=== PATIENT | male | born 1985 | race Caucasian/White ===

== ENCOUNTER → 2017-07-16 | Day surgery (SDC) | payer BC ==
[2017-06-24 15:44] VITALS: Ht 170.2 cm; Wt 95.5 kg
[~2017-07-16] VITALS: Ht 170.2 cm; Wt 95.5 kg
[~2017-07-16] MED LIST: ATROPINE SULFATE 0.1 MG/ML 5ML SYR IV PRN; BUPIVACAINE/EPINEPHRINE 0.5% MPF 1:200,000 30 ML VIAL ONE; CEFAZOLIN 2000 MG/60 ML D5W IV SCH; DEXAMETHASONE SOD INJ 4 MG/ML VIAL ONE; EpHEDrine SULFATE INJ 50 MG/ML AMP IV PRN; FENTANYL CITRATE INJ 50 MCG/1 ML 2 ML VIAL ONE; HYDR-5688 PO; HYDROCODONE/ACETAMOPHEN 5/325MG TAB PO PRN; KETOROLAC TROMETHAMINE 30 MG/ML VIAL ONE; LACTATED RINGER'S 1000ML 1,000 ML IV SCH; LIDOCAINE HCL 2% 2 ML VIAL (20MG/ML) ONE; LISI-461 PO; MIDAZOLAM HCL 1 MG/ML 2ML VIAL ONE; MISCCAP80 PO; ONDANSETRON INJ 2 MG/ML 2 ML VIAL IV PRN; ONDANSETRON INJ 2 MG/ML 2 ML VIAL ONE; PROPOFOL IV EMULSION 10 MG/ML 20 ML VIAL IV ONE; SODIUM CHLORIDE 0.9% 1000ML 1,000 ML IV SCH
--- NOTE | 2017-07-16 06:51 | History & Physical Bridge Note ---
H&P Re-Evaluation Bridge Note: I have examined the patient, reviewed the History & Physical and in the interval since the performance of the History & Physical I have noted the following changes of clinical significance: No changes noted
--- NOTE | 2017-07-16 08:24 | [facility] Operative Report ---
Operative Report Operative Date Jul 16, 2017. Pre-Operative Diagnosis Umbilical Hernia Post-Operative Diagnosis Same Procedure(s) Performed Open Umbilical Hernia Repair Surgeon Dr Palacios Pow[employer] Operator Surgeon(s) Marco Lama PA-C Estimated Blood Loss 5ml Findings 1 cm umbilical hernia with fat incarceration Specimens None Anesthesia LMA Complication(s) None Disposition Recovery Room / PACU Description of Procedure After informed consent was obtained the patient was taken to the operating room and placed in supine position. The periumbilical area was shaved and sterilely prepped and draped in usual fashion. We made a curvilinear infraumbilical incision with 15 blade scalpel and carried it down through the soft tissue using electrocautery. I used a Amanda clamp to come around the superior aspect of the umbilicus and then detached the umbilical stalk. This revealed an approximate 1 cm hernia defect. There was some per preperitoneal fat incarcerated within it. I was able to excise the fat and free up the fascial edges. Because of its size I opted to not use mesh. I primarily closed it using 0 Ethibond in simple interrupted fashion. The wound was thoroughly irrigated. There was adequate hemostasis. I reattach the umbilical stalk using 0 Vicryl. I closed the deep layers using 3-0 Vicryl and the skin using 4- 0 Monocryl. Marcaine was injected around the incision for postoperative analgesia and skin glue used as a dressing. The patient was awakened extubated and transferred recovery in stable condition I attest to the content of the Intraoperative Record and any orders documented therein. Any exceptions are noted below.
--- NOTE | 2017-07-16 08:27 | Discharge Instructions-SurgCtr ---
Discharge Instructions Date of Service Jul 16, 2017. Visit Reason for Visit: Umbilical Hernia Discharge Discharge Diagnosis / Problem: Umbilical Hernia Discharge Goals Goal(s): Decrease discomfort, Improve function Activity Recommendations Activity Limitations: as noted below Lifting Limitations: no more than 10 pounds Exercise/Sports Limitations: until after follow-up appointment May Resume Sexual Activity: after follow-up appointment Shower/Bathe: tomorrow Driving or Machine Use: resume 1 day after discharge Anesthesia . Post Anesthesia Instructions: If you have had General Anesthesia or IV Sedation: * Do not drive today. * Resume driving when surgeon permits. * Do not make important decisions or sign legal documents today. * Call surgeon for: 1. Temperature elevations greater than 101 degrees F. 2. Uncontrollable pain. 3. Excessive bleeding. 4. Persistent nausea and vomiting. 5. Medication intolerance (nausea, vomiting or rash). * For nausea and vomiting use only clear liquids such as: tea, soda, bouillon until nausea subsides, then gradually increase diet as tolerated. * If you have any concerns or questions, call your surgeon's office. If physician is unavailable and it is an emergency, call 911 or go to the nearest emergency room. . Instructions / Follow-Up Instructions / Follow-Up Please follow-up with Dr. Palacios in the office in 1-2 weeks. Please call the office to make a follow-up appointment if you do not have one already. Please call the office with any questions or concerns at [phone]. Diet Recommendations Home Diet: no limitations, resume previous diet Procedures Procedures Performed: Open Umbilical Hernia Repair Pending Studies Studies pending at discharge: no Medical Emergencies . Who to Call and When: Medical Emergencies: If at any time you feel your situation is an emergency, please call 911 immediately. . Non-Emergent Contact Non-Emergency issues call your: Primary Care Provider, Surgeon Call Non-Emergent contact if: temperature is above 101.5, your pain is not controlled, wound has increased drainage, wound has increased redness . . "Provider Documentation" section prepared by Consuelo Lopez. . [place] Drug Monitoring Program Search Results: patient reviewed within database, no issues identified
[2017-07-16] MEDS: FENTANYL CITRATE INJ 50 MCG/1 ML 2 ML VIAL IV PRN ×2 (08:33→08:39)
--- NOTE | 2017-07-16 08:38 | Anesthesia Progress Nt - [facility] ---
Anesthesia Post Op Note Date & Time Jul 16, 2017 at 08:38 Vital Signs Pain Intensity: 5.0 Vital Signs Past 12 Hours Date Time Temp Pulse Resp B/P (MAP) Pulse Ox O2 Delivery O2 Flow Rate FiO2 07/16/17 06:58 36.5 80 18 149/96 (113) 98 Room Air Notes Mental Status: alert / awake / arousable, participated in evaluation Pt Amnestic to Procedure: Yes Nausea / Vomiting: adequately controlled Pain: adequately controlled Airway Patency, RR, SpO2: stable & adequate BP & HR: stable & adequate Hydration State: stable & adequate Anesthetic Complications: no major complications apparent
[2017-07-16 09:56] VITALS: BP 141/95; PULSE 79; TEMP 36.5; O2SAT 98
== END | disposition home or self-care (01) ==
LOC: X.SURG 06:36
PROVIDERS: ATTEND Surgery
DX: K42.0 Umbilical hernia with obstruction, without gangrene (principal); I10 Essential (primary) hypertension; Z79.899 Other long term (current) drug therapy

== ENCOUNTER 2019-07-03 09:29 | Inpatient (IN) ==
[~2019-07-03 09:29] MED LIST changes: -ATROPINE SULFATE 0.1 MG/ML 5ML SYR IV PRN; -BUPIVACAINE/EPINEPHRINE 0.5% MPF 1:200,000 30 ML VIAL ONE; -CEFAZOLIN 2000 MG/60 ML D5W IV SCH; +CEFAZOLIN 2000MG 2,000 MG/15 ML SYR IV SCH; -DEXAMETHASONE SOD INJ 4 MG/ML VIAL ONE; -EpHEDrine SULFATE INJ 50 MG/ML AMP IV PRN; -FENTANYL CITRATE INJ 50 MCG/1 ML 2 ML VIAL ONE; -HYDR-5688 PO; -HYDROCODONE/ACETAMOPHEN 5/325MG TAB PO PRN; -KETOROLAC TROMETHAMINE 30 MG/ML VIAL ONE; -LACTATED RINGER'S 1000ML 1,000 ML IV SCH; -LIDOCAINE HCL 2% 2 ML VIAL (20MG/ML) ONE; -LISI-461 PO; -MIDAZOLAM HCL 1 MG/ML 2ML VIAL ONE; -MISCCAP80 PO; -ONDANSETRON INJ 2 MG/ML 2 ML VIAL IV PRN; -ONDANSETRON INJ 2 MG/ML 2 ML VIAL ONE; -PROPOFOL IV EMULSION 10 MG/ML 20 ML VIAL IV ONE; -SODIUM CHLORIDE 0.9% 1000ML 1,000 ML IV SCH
[2019-07-03 10:20] LABS: Basophils # (auto) 0.01 K/uL (0-0.2); Basophils % (auto) 0.1 %; Hematocrit (blood only) 46.2 % (42-52); Hemoglobin 16.3 g/dL (14.0-18.0); Immature Granulocytes # (auto) 0.02 K/uL (0.00-0.02); Immature Granulocytes % (auto) 0.2 %; Lymphocytes # (auto) 1.08 K/uL (1.2-3.4); Lymphocytes % (auto) 10.7 %; Mean Corpuscular Hemoglobin 32.6 pg (25-34); Mean Corpuscular Hgb Conc 35.3 g/dL (32-36); Mean Corpuscular Volume 92.4 fL (80-100); Mean Platelet Volume 10.4 fL (7.4-10.4); Monocytes # (auto) 0.55 K/uL (0.11-0.59); Monocytes % (auto) 5.5 %; Neutrophils # (auto) 8.42 K/uL (1.4-6.5); Neutrophils % (auto) 83.5 %; Platelet Count 244 K/uL (130-400); RDW Coefficient of Variation 12.6 % (11.5-14.5); RDW Standard Deviation 42.1 fL (36.4-46.3); White Blood Count 10.08 K/uL (4.8-10.8)
[2019-07-03 10:26] LABS: Albumin Level 4.2 gm/dl (3.4-5.0); Creatinine Clr Calc Pharmacy 111.4 ml/min; Est GFR (African American) 111.4; Est GFR (Non-African American) 96.1; Potassium 3.6 mmol/L (3.5-5.1)
[2019-07-03 10:29] LABS: Bilirubin,Total 0.5 mg/dl (0.2-1); Globulin 4.4 gm/dl (2.5-4.0); Total Protein 8.6 gm/dl (6.4-8.2)
[2019-07-03] MEDS ORDERED: ONDANSETRON INJ 2 MG/ML 2 ML VIAL IV PRN ×3 (11:22→18:54)
[2019-07-03] MEDS ORDERED: HYDROmorphone INJ 1 MG/ML SYRINGE IV PRN (11:30)
[2019-07-03] MEDS ORDERED: LACTATED RINGER'S 1,000 ML IV SCH ×2 (11:30→20:00)
--- NOTE | 2019-07-03 11:42 | History & Physical Report ---
Date of Service July 03, 2019 Assessment & Plan (1) Radiculopathy due to disorder of intervertebral disc of lumbar spine: due to the patient's neurological decline and urinary retention over the past 48hours, Case has been reviewed with Dr. Oconnell. We have made him n.p.o. We will take him urgently to the OR for revision decompression/instrument fusion L4-5. Risks, benefits, pros and alternatives were I&D with patient and his . They are comfortable with proceeding with above-mentioned surgical planning. History of Present Illness 33-year-old gentleman who presents to the ER with complaints of bilateral lower extremity numbness and pain. Symptoms started about 3 weeks ago but progressively worsened about 48 hours ago. He was working as a medication tech in [place] and a coworker took him to the ER at [facility] 48 hours ago. They waited in the ER for several hours without being seen therefore they left and came to [facility] emergency room for evaluation. MRI was ordered and Dr. Oconnell was consulted. He was supposed to follow-up in our office this morning but due to worsening numbness affecting bilateral lower extremities as well as pain in his ability to ambulate, he presented to the ER again. He has noted urinary retention over the past 48 hours. He has been taking oxycodone, prednisone and Valium for pain control. He does have a prior history of a laminectomy by Dr. Rothman in [facility] roughly 10 years ago.Symptoms involve bilateral posterior thighs, left calf and both feet. Primary Care Provider: Zee Mccann PA-C Allergies Allergy/AdvReac Type Severity Reaction Status Date / Time No Known Allergies Allergy Unverified 07/03/19 10:55 Home Medications Home Medications Medication Instructions Recorded Confirmed Type acetaminophen [Tylenol Extra 500 mg PO Q6H PRN 07/01/19 07/03/19 History Strength] diazepam [Valium] 2 mg PO QID PRN #10 tab 07/01/19 07/03/19 Rx diclofenac sodium 75 mg PO BID 07/01/19 07/03/19 History lidocaine [Lidoderm] 1 patch TOP DAILY #10 ea 07/01/19 07/03/19 Rx lisinopril-hydrochlorothiazide 1 tab PO QAM 07/01/19 07/03/19 History oxycodone 5 mg PO Q4H #10 tab 07/01/19 07/03/19 Rx sertraline 100 mg PO QAM 07/01/19 07/03/19 History prednisone 60 mg PO QAM 07/03/19 07/03/19 History Past Med/Surg History Medical History Bulging disc Surgical History No pertinent past surgical history Family History Other No pertinent family history Social History Preferred Language: Albanian Communication Ability: Effective Advertising Dispatch Clerk Required: No Beliefs That Will Affect Care: None Current Living Situation: Spouse and Family Other Information That Helps Us Care for You: No Feels Safe at Home: Yes Safety Concerns: Feels Safe At This Time Smoking Status: Never smoker Do You Dip or Chew Tobacco: No ; Second Hand Exposure: No ; Tobacco Cessation Education Requested by Patient: No Hx Alcohol Use: Yes Hx Substance Use: No Review of Systems Review of Systems: All systems reviewed & are unremarkable except as noted in HPI & below Physical Exam Physical Exam: He is seen in the emergency room [facility]. He is seen in conjunction with his . He is lying prone. He is in obvious distress. He is able to sit on the edge of the bed for me for further examination. He has a well-healed midline lumbar incision. He has breakaway weakness over bilateral quadriceps and hamstrings. He has positive straight leg raise and contralateral straight leg raise. Sensation is intact bilateral lower extremities. Constitutional: WD/WN, vitals as above Eyes: normal visual osorio by confrontation ENMT: external ear and nose normal, oropharynx normal Neck: normal visual inspection Respiratory: normal respiratory effort Cardiovascular: Rate/Rhythm: regular rate Gastrointestinal (Abdomen): Inspection/Auscultation: abdomen normal to inspection Musculoskeletal: see above Skin: no rashes, warm and dry Neurologic: moves all extremities and + focal motor deficit Psychiatric: A+Ox3, euthymic affect Speech: normal rate/rhythm/volume of speech Results & Data Vital Signs (Past 12 Hours) Vital Signs Temp Pulse Resp BP Pulse Ox 07/03/19 10:14 95 H 18 98 07/03/19 09:33 36.7 C 95 H 18 159/100 H 98 Diagnostic Findings MR lumbar spine wo/w con CLINICAL HISTORY: 33 years-old Male presenting with Sciatica, possible urinary retention, history of bulging disc with surgery, low back pain for 2 weeks, now worsening, difficulty voiding, numbness and tingling in both legs, numbness in the feet. TECHNIQUE: Multisequence, multiplanar MR imaging of the lumbar spine was performed before and after the administration of intravenous contrast. IV contrast: 9.5 mL of Gadavist. COMPARISON: None. FINDINGS: Localizer images: Mild S-shaped scoliotic curvature of the thoracolumbar spine. Normal lumbar lordosis. Vertebral bodies maintain normal height, alignment, and bone marrow signal intensity with the exception of trace endplate edema at L4-5. Intervertebral disc desiccation and mild height loss at L3-4 and L4-5. Additional multilevel degenerative changes further detail below: L1-2: No significant neural foraminal or spinal canal narrowing. L2-3: No significant neural foraminal or spinal canal narrowing. L3-4: Mild facet arthropathy. No significant neural foraminal or spinal canal narrowing. L4-5: Disc extrusion with caudal migration. The extruded disc fragment extends 16 mm below the superior endplate of L5 and measures 10 x 9 mm in maximal axial dimension. This severely effaces the thecal sac. No residual CSF signal. Mild bilateral neural foraminal narrowing. L5-S1: No significant neural foraminal or spinal canal narrowing. Spinal cord terminates in good position at T12. Cauda equina normal in morphology apart from the severe crowding at L4-5 as mentioned. No evidence of a buckled morphology. Postcontrast imaging does not demonstrate abnormal enhancement of the spinal nerve roots. Nonenhancement of the extruded disc as expected. No other epidural collection. Flow-voids within the vasculature preserved. Remainder of the visualized soft tissues within normal limits and with normal enhancement. Visualized portion of the sacrum also normal. IMPRESSION: 1. Extruded disc fragment with caudal migration at L4-5 resulting in severe effacement of the thecal sac. Correlate clinically for cauda equina impingement, although this is convincingly present on this exam. 2. Mild neural foraminal narrowing at L4-5. The report will be called/faxed according to standard departmental protocol. Electronically signed by: Eusebio Avery M.D. 07/01/2019 8:26 PM Dictated: 07/01/192019 Supervising Physician Co-Signing Physician Notes Dr. Yony Oconnell
--- NOTE | 2019-07-03 12:40 | History & Physical Bridge Note ---
Date of Service July 03, 2019 History & Physical Bridge Note I have examined the patient, reviewed the History & Physical and in the interval since the performance of the History & Physical I have noted the following changes of clinical significance: Patient presents with a marked decline in neurologic status with bilateral leg weakness and numbness and urinary retention. In light of his MRI findings and clinical presentation patient requires emergent decompression and fusion L4-5.
[2019-07-03] MEDS ORDERED: fentaNYL citrate 100 MCG/2 ML VIAL ONE ×4 (12:42→14:25)
[2019-07-03] MEDS ORDERED: MIDAZOLAM HCL 1 MG/ML 2ML VIAL ONE (12:42)
[2019-07-03] MEDS ORDERED: BACITRACIN INJ 50,000 UNIT VIAL ONE (12:43)
[2019-07-03] MEDS ORDERED: BUPIVACAINE/EPINEPHRINE 0.5% MPF 1:200,000 30 ML VIAL ONE (12:43)
[2019-07-03] MEDS ORDERED: HYDROmorphone INJ 2 MG/ML SYR/VIAL ONE (12:44)
--- NOTE | 2019-07-03 13:04 | Anesthesiology Consultation ---
Date of Service July 03, 2019 Assessment & Plan (1) Encounter for pre-operative examination: Chart Review Chart Review: Acceptable Risk for Surgery and Patient NOT seen in Pre Admission Testing Consults Requested none ASA [id number] Proposed Anesthesia Anesthesia Type: General Risk / Benefits Reviewed With: PT / POA / Parent / Guardian, Accepts Plan and Informed Consent Obtained History Surgery Operation Date: 07/03/19 11:15 Proposed Procedures p L4-L5 Decompression and Fusion - Yony Oconnell DO Height/Weight Height: 5 ft 6 in Weight: 95.5 kg Allergies Allergy/AdvReac Type Severity Reaction Status Date / Time No Known Allergies Allergy Unverified 07/03/19 10:55 Medications Home Medications Medication Instructions Recorded Confirmed Last Taken acetaminophen [Tylenol Extra 500 mg PO Q6H PRN 07/01/19 07/03/19 07/02/19 18:00 Strength] 1000mg diazepam [Valium] 2 mg PO QID PRN #10 tab 07/01/19 07/03/19 07/03/19 07:30 diclofenac sodium 75 mg PO BID 07/01/19 07/03/19 07/02/19 21:00 lidocaine [Lidoderm] 1 patch TOP DAILY #10 ea 07/01/19 07/03/19 07/02/19 lisinopril-hydrochlorothiazide 1 tab PO QAM 07/01/19 07/03/19 07/03/19 oxycodone 5 mg PO Q4H #10 tab 07/01/19 07/03/19 Unknown sertraline 100 mg PO QAM 07/01/19 07/03/19 07/03/19 prednisone 60 mg PO QAM 07/03/19 07/03/19 07/03/19 07:30 NPO Date Last Intake of Fluids: 07/03/19 Time Last Intake of Fluids: 07:30 Date Last Intake of Solids: 07/03/19 Time Last Intake of Solids: 03:00 Past Medical History Medical History Anxiety Hypertension Bulging disc Exercise / Class Metabolic Activity II 4-5 Yardwork/Stairs/Walk up hill Negative for chest pain or shortness of breath. Past Family History Family History Other No pertinent family history Past Surgical History Surgical History H/O discectomy History of hernia surgery Past Anesthesia History No Hx of Anesthesia Complications History of PONV No Hx of PONV and No Hx of Motion Sickness Social History Smoking Status: Never smoker Do You Dip or Chew Tobacco: No Hx Alcohol Use: Yes alcohol intake frequency: other Alcohol Intake Frequency Comment: 1 a month Hx Substance Use: No substance use type: does not use Review of Systems Patient denies active symptoms of GERD. Physical Exam Vital Signs Last Vital Signs Temp 36.8 C 07/03/19 12:14 Pulse 88 07/03/19 12:14 Resp 16 07/03/19 12:14 BP 138/99 07/03/19 12:14 Pulse Ox 92 07/03/19 12:14 Constitutional + obese ENMT Mouth: no TMJ abnormality and oral opening not small Thyromental Distance: > or= 3.5 Finger Breadths Mallampati Class: II Neck normal visual inspection; neck extension not limited Respiratory normal respiratory effort Auscultation: lungs clear to auscultation bilaterally Cardiovascular Rate/Rhythm: regular rate and regular rhythm Heart Sounds: no murmur Neurologic moves all extremities Motor/Sensory: + sensory deficit Psychiatric Orientation: alert and oriented x 3 Testing Laboratory Results 07/03/19 09:55 07/03/19 09:55
[2019-07-03] MEDS ORDERED: PROMETHAZINE HCL 12.5 MG in SODIUM CHLORIDE 0.9% 50 ML IV PRN ×2 (13:13→18:54)
[2019-07-03] MEDS ORDERED: ATROPINE SULFATE 0.1 MG/ML 10ML SYR IV PRN (13:13)
[2019-07-03] MEDS ORDERED: ePHEDrine sulfate 50 MG/ML AMP IV PRN (13:13)
[2019-07-03] MEDS ORDERED: PROPOFOL IV EMULSION 10 MG/ML 20 ML VIAL IV ONE (13:41)
[2019-07-03] MEDS ORDERED: ROCURONIUM BROMIDE 10 MG/ML 5 ML VIAL ONE (13:41)
[2019-07-03] MEDS ORDERED: NEOSTIGMINE METHYLSULFATE 1 MG/ML 10ML VIAL ONE (13:41)
[2019-07-03] MEDS ORDERED: GLYCOPYRROLATE 0.2 MG/ML VIAL ONE (13:41)
[2019-07-03] MEDS ORDERED: DEXAMETHASONE SOD INJ 4 MG/ML VIAL ONE (13:41)
[2019-07-03] MEDS ORDERED: PHENYLEPHRINE 100MCG/ML 5ML SYR ONE ×2 (13:41→14:22)
[2019-07-03] MEDS ORDERED: LIDOCAINE HCL 2% 2 ML VIAL/AMP(20MG/ML) INFIL ONE (13:41)
[2019-07-03] MEDS ORDERED: ONDANSETRON INJ 2 MG/ML 2 ML VIAL ONE (13:41)
[2019-07-03] MEDS ORDERED: LARYING-O-JET KIT (LTA) ONE (13:42)
[2019-07-03] MEDS ORDERED: ePHEDrine sulfate 50 MG/ML SYR ONE (14:22)
--- NOTE | 2019-07-03 15:01 | Fluoroscopy Report ---
LUMBAR SPINE, INTRAOPERATIVE FLUOROSCOPY HISTORY: L4-L5 decompression and fusion. FLUOROSCOPY TIME: 16 seconds. FINDINGS: Intraoperative fluoroscopy was provided for the lumbar spine. 2 fluoroscopic spot images we re obtained. Posterior decompression and fusion at L4-L5 with pedicle screws and rods. The hardware a ppears intact. IMPRESSION: Fluoroscopy provided for a L4-5 posterior decompression and fusion. Electronically signed by: Chapincito Harrison M.D. 07/03/2019 3:00 PM
--- NOTE | 2019-07-03 15:02 | Operative Report ---
Post Operative Report Pre & Post Diagnosis Operation Date: 07/03/19 11:15 Pre-Op Diagnosis: Radiculopathy due to disorder of intervertebral disc of lumbar spine Cauda equina syndrome Post-Op Diagnosis: Same Procedure Operation Date: 07/03/19 11:15 Actual Procedures #1 revision decompression bilateral medial facetectomies foraminotomies L4-5. #2 posterior spinal fusion L4-5 per #3 placed posterior instrumentation L4-5 per #4 interbody fusion L4-5. #5 placement of titanium 11 x 26 mm cage L4-5. #6 placement of local autograft in the posterior lateral gutters per #7 placement infuse collagen sponge bone mass graft in the posterior lateral gutters and ostial amp in the interbody space. Surgeon Yony Oconnell, Vacuum Kettle Cook Iva Cifuentes Estimated Blood Loss 100 Findings See Below Patient is 5 foot 6 inches tall weighing in over 95 pounds with a BMI of 34. The patient's body habitus did ask created increased technical difficulty at at least 25% increase in operative time. Specimens None Indications This is a 33-year-old male that presents with a marked decline in status over the past 2 days. He has marked increase in lower extremity numbness and pain with urinary retention for the presentation of cauda equina syndrome.. Based on his clinical presentation and MRI findings he was taken to surgery for emergent decompression and fusion. Description of Procedure Patient was met with identified and informed consent obtained. He was then taken to the operative suite underwent intubation placed in a prone position on the Imtiaz table on top of the Edwin frame. All bony prominences well-padded eyes inspected to ensure no external pressure placed upon the peer at this point the lumbar spine was prepped and draped in the normal sterile fashion. Sharp dissection with the assistance of Bovie cautery was performed down to and exposing the remaining lamina at L4 and the transverse processes of L4 and L5 bilaterally. I then performed a revision complete laminectomy of L4 including bilateral medial facetectomies foraminotomies. He was then able to mobilize the traversing L5 nerve root medially and removed several fragments. Then explored the axillary region of L5-S1 removing a massive free fragment. This created significant decompression of the nerve roots. And then by way of a transforaminal approach on the left complete discectomy was performed in plate graded to subcortical bleeding bone and a 11 x 26 mm titanium cage filled with ostium bone graft tapped in position. The rods were then compressed locked in final position bilaterally. The transverse processes of L4 and L5 bur to subcortical bleeding bone. Infuse collagen sponge master graft and local autograft placed in the posterior lateral gutters. 15 round LAMINE drain inserted. Incision was then closed with 1 Vicryl in the fascia 2-0 Vicryl subtenons in 4-0 Monocryl for final skin closure. Steri-Strip sterile dressings placed. She will continue to PACU stable condition. Please note Iva Cifuentes present throughout the entire procedure involved the patient positioning complex portions of the surgery and final skin closure. Lastly spinal cord monitoring was utilized throughout the procedure and no changes noted. I attest to the content of the Intraoperative Record and any orders documented therein. Any exceptions are noted below.
[2019-07-03] MEDS ORDERED: FLOSEAL HEMOSTATIC MATRIX 10ML TOP ONE (15:10)
[2019-07-03] MEDS: fentaNYL citrate 100 MCG/2 ML VIAL IV PRN ×2 (15:37→15:44)
[2019-07-03] MEDS: HYDROmorphone INJ 2 MG/ML SYR/VIAL IV PRN ×3 (16:25→17:03)
--- NOTE | 2019-07-03 16:45 | Emergency Department Note ---
Entered by Sandie Ag acting as a scribe for History of Present Illness General Chief complaint: Back Injury/Pain Stated complaint: LOSS OF BALANCE, NO FEELING LEGS/FEET,LOW BACKPAIN Source: patient History of Present Illness Onset (ago): week(s) 3 Location: back (lower) Pain Consistency: + constant Quality: + other (lower back pain ) Associated symptoms: + other (+numbness to posterior lower extremities; +troubles defecating; +urinating "dribbles"; -diarrhea ); no chest pain, no nausea/vomiting and no shortness of breath The patient is a 33 year old male who presents to the Emergency Room with complaints of constant lower back pain for the past 3 weeks. The patient notes he had disc surgery approximately 10 years ago at [facility]. The patient also notes numbness that began 2 days ago to the back of his thighs, buttocks, bottom of feet, and right calf. The patient denies experiencing any numbness to the front of his legs. The patient also states he has not been defecating recently. The patient notes he was urinating "dribbles" 2 days ago, but the patient notes this has improved. The patient reports he was in the ED for the same symptoms 2 days ago. The patient reports he was given oxycodone and and prednisone for symptoms. The patient reports the numbness to his legs has worsened since the previous ED visit. The patient states he took oxycodone for the first time in his life two nights ago, and the patient reports he woke up in the middle of night to walk to the bathroom. The patient states that when he walking, he felt nauseated and felt as if his ankles were gonna snap. The patient states he called 911, but the patient notes he was able to calm down and symptoms resolved before police arrived. The patient also states his right leg gave out yesterday. The patient denies chest pain, shortness of breath, diarrhea, and vomiting. 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 Home Medications Home Medications Medication Instructions Recorded Confirmed Type acetaminophen [Tylenol Extra 500 mg PO Q6H PRN 07/01/19 07/03/19 History Strength] diazepam [Valium] 2 mg PO QID PRN #10 tab 07/01/19 07/03/19 Rx diclofenac sodium 75 mg PO BID 07/01/19 07/03/19 History lidocaine [Lidoderm] 1 patch TOP DAILY #10 ea 07/01/19 07/03/19 Rx lisinopril-hydrochlorothiazide 1 tab PO QAM 07/01/19 07/03/19 History oxycodone 5 mg PO Q4H #10 tab 07/01/19 07/03/19 Rx sertraline 100 mg PO QAM 07/01/19 07/03/19 History prednisone 60 mg PO QAM 07/03/19 07/03/19 History Allergies Allergy/AdvReac Type Severity Reaction Status Date / Time No Known Allergies Allergy Unverified 07/03/19 10:55 Past Med/Surg History Medical History Anxiety Hypertension Bulging disc Surgical History H/O discectomy History of hernia surgery Family History Other No pertinent family history Social History Preferred Language: Italian Communication Ability: Effective Cloth Napping Supervisor Required: No Beliefs That Will Affect Care: None Current Living Situation: Spouse and Family Other Information That Helps Us Care for You: No Feels Safe at Home: Yes Safety Concerns: Feels Safe At This Time Smoking Status: Never smoker Do You Dip or Chew Tobacco: No ; Second Hand Expos ure: No ; Tobacco Cessation Education Requested by Patient: No Hx Alcohol Use: Yes Hx Substance Use: No Review of Systems See HPI for pertinent positives & negatives. and A total of 10 systems reviewed and were otherwise negative Physical Exam Vital Signs Vital Signs - 24 hr 07/03/19 09:33 07/03/19 10:14 07/03/19 11:58 Temperature 36.7 C Temperature Source Oral Sepsis Recent Fever Within 48 Hours No Sepsis New/Unexplained Change in Mental Status No Sepsis Action Taken by Nursing No Action Required Pulse Rate 95 H 95 H 71 Pulse Rate [Apical] Pulse Rate [Right Finger] Pulse Rhythm [Apical] Pulse Rhythm [Right Finger] Pulse Strength [Right Finger] Respiratory Rate 18 18 19 Respiratory Effort / Characteristics Non-Labored Spontaneous Respiratory Depth Normal Respiratory Pattern Blood Pressure 159/100 H 133/74 Blood Pressure [Left Arm] Blood Pressure Mean 119 Blood Pressure Mean [Left Arm] Blood Pressure Position Sitting Blood Pressure Position [Left Arm] Pulse Oximetry 98 98 97 Oxygen Delivery Method Room Air Room Air Room Air Oxygen Flow Rate 07/03/19 12:14 07/03/19 15:19 07/03/19 15:25 Temperature 36.8 C 37.1 C Temperature Source Oral Temporal Artery Scan Sepsis Recent Fever Within 48 Hours Sepsis New/Unexplained Change in Mental Status Sepsis Action Taken by Nursing Pulse Rate Pulse Rate [Apical] 135 H 99 H Pulse Rate [Right Finger] 88 Pulse Rhythm [Apical] Regular Regular Pulse Rhythm [Right Finger] Regular Pulse Strength [Right Finger] Normal Respiratory Rate 16 15 21 Respiratory Effort / Characteristics Non-Labored Spontaneous Non-Labored Spontaneous Non-Labored Spontaneous Respiratory Depth Normal Normal Normal Respiratory Pattern Regular Regular Regular Blood Pressure Blood Pressure [Left Arm] 138/99 123/98 135/87 Blood Pressure Mean Blood Pressure Mean [Left Arm] 112 106 103 Blood Pressure Position Blood Pressure Position [Left Arm] Sitting Semi-fowlers Semi-fowlers Pulse Oximetry 92 99 98 Oxygen Delivery Method Room Air Oxymask Oxymask Oxygen Flow Rate 10 10 07/03/19 15:35 07/03/19 15:45 07/03/19 15:55 Temperature Temperature Source Sepsis Recent Fever Within 48 Hours Sepsis New/Unexplained Change in Mental Status Sepsis Action Taken by Nursing Pulse Rate Pulse Rate [Apical] 118 H 132 H 121 H Pulse Rate [Right Finger] Pulse Rhythm [Apical] Regular Regular Regular Pulse Rhythm [Right Finger] Pulse Strength [Right Finger] Respiratory Rate 15 15 19 Respiratory Effort / Characteristics Non-Labored Spontaneous Non-Labored Spontaneous Non-Labored Spontaneous Respiratory Depth Normal Normal Normal Respiratory Pattern Regular Regular Regular Blood Pressure Blood Pressure [Left Arm] 134/87 123/69 114/64 Blood Pressure Mean Blood Pressure Mean [Left Arm] 102 87 80 Blood Pressure Position Blood Pressure Position [Left Arm] Semi-fowlers Semi-fowlers Semi-fowlers Pulse Oximetry 98 95 92 Oxygen Delivery Method Oxymask Room Air Room Air Oxygen Flow Rate 10 07/03/19 16:05 07/03/19 16:15 07/03/19 16:25 Temperature Temperature Source Sepsis Recent Fever Within 48 Hours Sepsis New/Unexplained Change in Mental Status Sepsis Action Taken by Nursing Pulse Rate Pulse Rate [Apical] 119 H 126 H 129 H Pulse Rate [Right Finger] Pulse Rhythm [Apical] Regular Regular Regular Pulse Rhythm [Right Finger] Pulse Strength [Right Finger] Respiratory Rate 22 21 18 Respiratory Effort / Characteristics Non-Labored Spontaneous Non-Labored Spontaneous Non-Labored Spontaneous Respiratory Depth Normal Normal Normal Respiratory Pattern Regular Regular Regular Blood Pressure Blood Pressure [Left Arm] 145/95 H 147/92 H 112/69 Blood Pressure Mean Blood Pressure Mean [Left Arm] 111 110 83 Blood Pressure Position Blood Pressure Position [Left Arm] Semi-fowlers Semi-fowlers Semi-fowlers Pulse Oximetry 97 98 98 Oxygen Delivery Method Nasal Cannula Nasal Cannula Nasal Cannula Oxygen Flow Rate 2 2 2 07/03/19 16:35 Temperature Temperature Source Sepsis Recent Fever Within 48 Hours Sepsis New/Unexplained Change in Mental Status Sepsis Action Taken by Nursing Pulse Rate Pulse Rate [Apical] 122 H Pulse Rate [Right Finger] Pulse Rhythm [Apical] Regular Pulse Rhythm [Right Finger] Pulse Strength [Right Finger] Respiratory Rate 12 Respiratory Effort / Characteristics Non-Labored Spontaneous Respiratory Depth Normal Respiratory Pattern Regular Blood Pressure Blood Pressure [Left Arm] 110/64 Blood Pressure Mean Blood Pressure Mean [Left Arm] 79 Blood Pressure Position Blood Pressure Position [Left Arm] Semi-fowlers Pulse Oximetry 98 Oxygen Delivery Method Nasal Cannula Oxygen Flow Rate 2 GENERAL: laying in bed on right side, minimal distress, non-toxic EYE EXAM: normal conjunctiva, OROPHARYNX: no exudate, no erythema, lips, buccal mucosa, and tongue normal and mucous membranes are moist NECK: supple, no nuchal rigidity, no adenopathy, non-tender LUNGS: Clear to auscultation. Normal chest wall mechanics HEART: no murmurs, S1 normal and S2 normal ABDOMEN: abdomen soft, non-tender, normo-active bowel sounds, no masses, no rebound or guarding. BACK: Back is symmetrical on inspection and there is no deformity, no midline tenderness, no CVA tenderness. SKIN: no rashes and no bruising UPPER EXTREMITIES: upper extremities are grossly normal. LOWER EXTREMITIES: Flexion and extension of hip, knee, and ankle and EHL 4/5 on left and 5/5 on right but still weak on right. Patellar and achilles reflexes 3/4 bilaterally. Diminished sensation posteriorly on legs. NEURO EXAM: Normal sensorium, cranial nerves II-XII grossly intact, normal speech, no gross weakness of arms. Course ED COURSE: Vital signs were reviewed and showed hypertensive. The patients medical record was reviewed The above diagnostic studies were performed and reviewed. ED treatments and interventions as stated above. 1013: The patient was evaluated in room C7. A complete history and physical examination was performed. 1047: I reviewed the patient's case with Dr. Fonseca. Dr. Oconnell will evaluate the patient for further management in the OR. Based on the patients age, coexisting illnesses, exam and lab findings the decision to treat as an inpatient was made. The patient remained stable while under my care. The patient will be evaluated for further management. Consultations Consultation #1: I reviewed the patient's case with Dr. Fonseca. Dr. Oconnell will evaluate the patient for further management in the OR. Time: 10:47 Administered Medications Fentanyl Citrate (Fentanyl Citrate) 50 mcg IV Q5M PRN PRN Reason: PACU Use Only-Pain Stop: 07/03/19 18:14 Last Admin: 07/03/19 15:44 Dose: 50 mcg Documented by: [id number] Admin: 07/03/19 15:37 Dose: 50 mcg Documented by: [id number] Hydromorphone HCl (Dilaudid) 0.5 mg IV Q5M PRN PRN Reason: PACU Use Only-Pain Stop: 07/03/19 18:14 Last Admin: 07/03/19 16:38 Dose: 0.5 mg Documented by: [id number] Admin: 07/03/19 16:25 Dose: 0.5 mg Documented by: [id number] Cefazolin Sodium (Ancef 2000mg) 2,000 mg in 15 mls @ 3.75 mls/min IV PREOP MELODIE; Protocol Stop: 07/04/19 05:59 Last Admin: 07/03/19 13:14 Dose: 3.75 mls/min Documented by: [id number] Discontinued Medications Bacitracin (Bacitracin) Confirm Administered Dose 50,000 units .ROUTE .STK-MED ONE Stop: 07/03/19 12:44 Last Admin: 07/03/19 14:44 Dose: 50,000 units Documented by: [id number] Bupivacaine HCl/Epinephrine Bitart (Sensorcaine/Epinephrine 0.5% Mpf 1:200,000) Confirm Administered Dose 30 ml .ROUTE .STK-MED ONE Stop: 07/03/19 12:44 Last Admin: 07/03/19 13:51 Dose: 25 ml Documented by: [id number] Miscellaneous (Floseal Hemostatic Matrix 10ml) 20 ml TOP ONCE ONE Stop: 07/03/19 15:11 Last Admin: 07/03/19 15:11 Dose: 7 ml Documented by: [id number] Medical Decision Making Differential Diagnosis Differential diagnoses includes but is not limited to lumbar radiculopathy, muscle strain, fracture, cauda equina, mass, and disc herniation. Medical Records Attestation: I reviewed the patient's medical records. Home Medications Current Medication List: was personally reviewed by sc Laboratory Data Attestation: I reviewed the patient's lab results. Result diagrams: 07/03/19 09:55 07/03/19 09:55 Lab Results 07/03/19 07/03/19 07/03/19 Range/Units 09:55 09:55 11:38 WBC 10.08 (4.8-10.8) K/uL RBC 5.00 (4.7-6.1) M/uL Hgb 16.3 (14.0-18.0) g/dL Hct 46.2 (42-52) % MCV 92.4 (80-100) fL MCH 32.6 (25-34) pg MCHC 35.3 (32-36) g/dL RDW Std Deviation 42.1 (36.4-46.3) fL RDW Coeff of Shanda 12.6 (11.5-14.5) % Plt Count 244 (130-400) K/uL MPV 10.4 (7.4-10.4) fL Immature Gran % (Auto) 0.2 % Neut % (Auto) 83.5 % Lymph % (Auto) 10.7 % [place] % (Auto) 5.5 % Eos % (Auto) 0.0 % Baso % (Auto) 0.1 % Immature Gran # (Auto) 0.02 (0.00-0.02) K/uL Neut # (Auto) 8.42 H (1.4-6.5) K/uL Lymph # (Auto) 1.08 L (1.2-3.4) K/uL [place] # (Auto) 0.55 (0.11-0.59) K/uL Eos # (Auto) 0.00 (0-0.5) K/uL Baso # (Auto) 0.01 (0-0.2) K/uL Sodium 139 (136-145) mmol/L Potassium 3.6 (3.5-5.1) mmol/L Chloride 103 (98-107) mmol/L Carbon Dioxide 27 (21-32) mmol/L Anion Gap 9.0 (3-11) BUN 14 (7-18) mg/dl Creatinine 1.02 (0.6-1.4) mg/dl Est Cr Clr Drug Dosing 111.4 ml/min Est GFR ( Amer) 111.4 Est GFR (Non-Af Amer) 96.1 BUN/Creatinine Ratio 14.0 (10-20) Glucose 101 H (70-99) mg/dl Calcium 10.0 (8.5-10.1) mg/dl Total Bilirubin 0.5 (0.2-1) mg/dl AST 26 (15-37) U/L ALT 34 (12-78) U/L Alkaline Phosphatase 105 (45-117) U/L Total Protein 8.6 H (6.4-8.2) gm/dl Albumin 4.2 (3.4-5.0) gm/dl Globulin 4.4 H (2.5-4.0) gm/dl Albumin/Globulin Ratio 1.0 (0.9-2) Lipase 110 (73-393) U/L Blood Type O Positive Antibody Screen NEGATIVE Blood Pressure Blood Pressure Findings: Elevated blood pressure Blood Pressure Disposition: further management by hospitalist JONG Narrative Patient is a 33-year-old male who presents the ER for back pain and leg weakness along with paresthesias. He was seen here this past weekend and had an MRI with a bulging disc and protrusion into the cauda equina. He was discharged with steroids after he is feeling better to follow-up with orthopedics today. He notes his weakness and numbness have gotten worse. He has been falling. Intermittently his leg will give out from underneath of him. On exam he does have clear weakness on the left. Decreased sensation. Patient was slightly tachycardic. IV was established labs show no significant leukocytosis or anemia. BMP along with LFTs bilirubin and lipase was unremarkable. Based on his exam and MRI this is consistent with cauda equina. Consulted orthopedics a nd patient was taking them to the OR. Patient was given IV steroids while in the ER. Impression & Plan Cauda equina compression, Weakness of left lower extremity, Herniation of intervertebral disc Critical Care Time Critical Care Time: Yes Total Critical Care Time: 30 I have personally spent 30 minutes of critical care time in the direct management of this patient. This includes bedside care, interpretation of diagnostic studies, and testing, discussion with consultants, patient, and family members, and other required patient management activities. This 30 minutes is in excess of all separately billable procedures. Discharge Plan Visit Data *Final* Discharge Date/Time: 07/03/19 11:58 Chief Complaint: Back Injury/Pain Stated Complaint: LOSS OF BALANCE, NO FEELING LEGS/FEET,LOW BACKPAIN ED Provider: [facility] Discharge Problem: Cauda equina compression, Weakness of left lower extremity, Herniation of intervertebral disc Patient Disposition: Being Evaluated by Surgeon Discharge Instructions Interventions: ED Discharge Assessment Last Done: 07/03/19 11:58 Discharge Problem: Herniation of intervertebral disc Qualifiers: Spinal region: unspecified cervical region Qualified Code(s): M50.20 - Other cervical disc displacement, unspecified cervical region The scribe's documentation has been prepared under my direction and personally reviewed by me in its entirety. I confirm that the note above accurately reflects all work, treatment, procedures, and medical decision making performed by me.
[2019-07-03] MEDS ORDERED: METOPROLOL TARTRATE 1 MG/ML VIAL IV ONE (17:08)
[2019-07-03] MEDS ORDERED: METOPROLOL TARTRATE 1 MG/ML VIAL IV STA ×3 (17:09→18:34)
--- NOTE | 2019-07-03 17:15 | Anesthesiology Progress Note ---
Date of Service July 03, 2019 Anesthesia Post Procedure Vital Signs Vital Signs: Temp Pulse Pulse Pulse Resp BP BP 07/03/19 17:10 130 H 126/75 07/03/19 16:55 133 H 12 132/84 07/03/19 16:45 126 H 21 111/67 07/03/19 16:35 122 H 12 110/64 07/03/19 16:25 129 H 18 112/69 07/03/19 16:15 126 H 21 147/92 H 07/03/19 16:05 119 H 22 145/95 H 07/03/19 15:55 121 H 19 114/64 07/03/19 15:45 132 H 15 123/69 07/03/19 15:35 118 H 15 134/87 07/03/19 15:25 99 H 21 135/87 07/03/19 15:19 98.8 F 135 H 15 123/98 07/03/19 12:14 98.2 F 88 16 138/99 07/03/19 11:58 71 19 133/74 07/03/19 10:14 95 H 18 07/03/19 09:33 98.1 F 95 H 18 159/100 H Pulse Ox 07/03/19 17:10 07/03/19 16:55 95 07/03/19 16:45 98 07/03/19 16:35 98 07/03/19 16:25 98 07/03/19 16:15 98 07/03/19 16:05 97 07/03/19 15:55 92 07/03/19 15:45 95 07/03/19 15:35 98 07/03/19 15:25 98 07/03/19 15:19 99 07/03/19 12:14 92 07/03/19 11:58 97 07/03/19 10:14 98 07/03/19 09:33 98 Pain Intensity Back: Pain Intensity: 4 Transfer of Care Handoff Completed per policy Notes Mental Status: alert / awake / arousable and participated in evaluation Patient Amnestic to Procedure: Yes Nausea / Vomiting: adequately controlled Pain: adequately controlled Airway Patency, RR, SpO2: stable & adequate BP & HR: stable & adequate and see Notes below Hydration State: stable & adequate Anesthetic Complications: no major complications apparent and Pt Satisfied with anesthetic care Notes: The patient was tachycardic in PACU. The patient stated mild back pain. The patient was administered IV narcotic and a 500mL LR fluid bolus with minimal change in his heart rate. The patient offered no other symptoms. The patient was administered metoprolol 2mg IV. The patients HR was in the 110s. The patient was otherwise stable for discharge to his room.
[2019-07-03] MEDS ORDERED: ONDANSETRON 4 MG TAB PO PRN (18:54)
[2019-07-03] MEDS ORDERED: NALOXONE HCL 0.4 MG/1 ML VIAL/CARP IV PRN (18:54)
[2019-07-03] MEDS ORDERED: BISACODYL 10 MG SUPP PR PRN (18:54)
[2019-07-03] MEDS ORDERED: LORazepam 0.5 MG/1 ML VIAL IV PRN (18:54)
[2019-07-03] MEDS ORDERED: DO NOT ADMINISTER PNEUMOCOCCAL VACCINE PRN (18:54)
[2019-07-03] MEDS ORDERED: DO NOT ADMINISTER FLU VACCINE PRN (18:54)
[2019-07-03] MEDS ORDERED: ACETAMINOPHEN 500 MG TAB PO PRN ×2 (18:54)
[2019-07-03] MEDS ORDERED: MAGNESIUM HYDROXIDE SUSP 30 ML UDC PO PRN (18:54)
[2019-07-03] MEDS ORDERED: FAMOTIDINE 20 MG TAB PO PRN (18:54)
[2019-07-03] MEDS ORDERED: ACETAMINOPHEN 1,000 MG/100 ML VIAL IV PRN (18:54)
[2019-07-03] MEDS ORDERED: SOD PHOSPHATE/SOD BIPHOSPHATE ENEMA 132 ML BTL PR PRN (18:54)
[2019-07-03] MEDS ORDERED: LORazepam 0.5 MG TAB PO PRN (18:54)
[2019-07-03] MEDS ORDERED: HYDROmorphone INJ 0.5 MG/0.5 ML SYR IV PRN (18:54)
[2019-07-03] MEDS ORDERED: METOCLOPRAMIDE HCL INJ 5 MG/ML 2 ML VIAL IV PRN (18:54)
[2019-07-03] MEDS ORDERED: ALUMINUM/MAGNESIUM SUSP 30 ML UDC PO PRN (18:54)
[2019-07-03] MEDS ORDERED: OXYCODONE HCL IR 5 MG TAB (IMMEDIATE RELEASE) PO PRN (18:54)
[2019-07-03] MEDS: KETOROLAC 30 MG/ML VIAL IV SCH (20:20)
[2019-07-03] MEDS: DOCUSATE SODIUM/SENNA 50/8.6MG TAB PO SCH (20:22)
[2019-07-03] MEDS: CEFAZOLIN 2000MG 2,000 MG/15 ML SYR IV SCH (22:15)
[2019-07-03] MEDS: DEXAMETHASONE SOD PHOSPHATE 8 MG in SYRINGE 0 ML IV SCH (22:15)
[2019-07-04] MEDS: KETOROLAC 30 MG/ML VIAL IV SCH ×3 (00:50→11:52)
[2019-07-04 03:20] LABS: Appearance Urine Clear (Clear); Bilirubin Urine Negative (Negative); Blood Urine Negative (Negative); Color Urine Yellow; Glucose Urine UA Negative (Negative); Ketones Urine Negative (Negative); Leukocyte Esterase Urine Negative (Negative); Nitrite Urine Negative (Negative); Protein Urine Negative (Negative); Specific Gravity Urine 1.013 (1.000-1.030); Urobilinogen Urine Negative (Negative); pH Urine 6.5 (4.5-7.5)
[2019-07-04] MEDS: DEXAMETHASONE SOD PHOSPHATE 8 MG in SYRINGE 0 ML IV SCH ×3 (05:33→20:49)
[2019-07-04] MEDS: POLYETHYLENE (MIRALAX) 17 GM PACK PO SCH ×4 (05:33→23:48)
[2019-07-04] MEDS: CEFAZOLIN 2000MG 2,000 MG/15 ML SYR IV SCH (05:33)
[2019-07-04 05:51] LABS: Hematocrit (blood only) 40.9 % (42-52); Hemoglobin 13.9 g/dL (14.0-18.0); Immature Granulocytes # (auto) 0.04 K/uL (0.00-0.02); Immature Granulocytes % (auto) 0.3 %; Lymphocytes # (auto) 0.75 K/uL (1.2-3.4); Lymphocytes % (auto) 5.7 %; Mean Corpuscular Hemoglobin 32.1 pg (25-34); Mean Corpuscular Volume 94.5 fL (80-100); Mean Platelet Volume 10.1 fL (7.4-10.4); Monocytes % (auto) 3.8 %; Neutrophils # (auto) 11.94 K/uL (1.4-6.5); Neutrophils % (auto) 90.2 %; Platelet Count 223 K/uL (130-400); RDW Coefficient of Variation 12.3 % (11.5-14.5); RDW Standard Deviation 42.7 fL (36.4-46.3); Red Blood Count 4.33 M/uL (4.7-6.1); White Blood Count 13.23 K/uL (4.8-10.8)
[2019-07-04 06:35] LABS: Calcium 8.9 mg/dl (8.5-10.1); Creatinine Clr Calc Pharmacy 90.2 ml/min; Est GFR (African American) 86.3; Est GFR (Non-African American) 74.5; Potassium 4.2 mmol/L (3.5-5.1)
--- NOTE | 2019-07-04 07:30 | Anesthesiology Progress Note ---
Date of Service July 04, 2019 Anesthesia Post Procedure Vital Signs Vital Signs: Temp Pulse Pulse Pulse Pulse Resp BP 07/04/19 06:51 36.5 C 74 16 07/04/19 03:22 36.7 C 70 16 07/03/19 23:09 36.9 C 75 16 07/03/19 21:54 78 16 07/03/19 20:51 36.8 C 95 H 17 07/03/19 20:04 36.7 C 93 H 14 07/03/19 18:40 110 H 18 07/03/19 18:25 125 H 15 07/03/19 18:10 109 H 18 07/03/19 17:55 111 H 20 07/03/19 17:45 118 H 18 07/03/19 17:35 112 H 20 07/03/19 17:25 37.3 C 120 H 18 07/03/19 17:15 110 H 15 07/03/19 17:10 130 H 126/75 07/03/19 17:05 108 H 13 07/03/19 16:55 133 H 12 07/03/19 16:45 126 H 21 07/03/19 16:35 122 H 12 07/03/19 16:25 129 H 18 07/03/19 16:15 126 H 21 07/03/19 16:05 119 H 22 07/03/19 15:55 121 H 19 07/03/19 15:45 132 H 15 07/03/19 15:35 118 H 15 07/03/19 15:25 99 H 21 07/03/19 15:19 37.1 C 135 H 15 07/03/19 12:14 36.8 C 88 16 07/03/19 11:58 71 19 133/74 07/03/19 10:14 95 H 18 07/03/19 09:33 36.7 C 95 H 18 159/100 H BP Pulse Ox 07/04/19 06:51 124/73 99 07/04/19 03:22 141/85 H 97 07/03/19 23:09 122/69 95 07/03/19 21:54 122/70 95 07/03/19 20:51 142/82 H 94 07/03/19 20:04 138/80 96 07/03/19 18:40 115/68 98 07/03/19 18:25 121/72 98 07/03/19 18:10 124/78 98 07/03/19 17:55 100/56 L 98 07/03/19 17:45 120/74 98 07/03/19 17:35 96 07/03/19 17:25 128/82 95 07/03/19 17:15 113/78 95 07/03/19 17:10 07/03/19 17:05 118/77 98 07/03/19 16:55 132/84 95 07/03/19 16:45 111/67 98 07/03/19 16:35 110/64 98 07/03/19 16:25 112/69 98 07/03/19 16:15 147/92 H 98 07/03/19 16:05 145/95 H 97 07/03/19 15:55 114/64 92 07/03/19 15:45 123/69 95 07/03/19 15:35 134/87 98 07/03/19 15:25 135/87 98 07/03/19 15:19 123/98 99 07/03/19 12:14 138/99 92 07/03/19 11:58 97 07/03/19 10:14 98 07/03/19 09:33 98 Pain Intensity Back: Pain Intensity: 4 Notes Mental Status: alert / awake / arousable and participated in evaluation Nausea / Vomiting: adequately controlled Pain: adequately controlled Airway Patency, RR, SpO2: stable & adequate BP & HR: stable & adequate Hydration State: stable & adequate
[2019-07-04] MEDS: TRAMADOL HCL 50 MG TABLET PO PRN ×3 (07:35→19:53)
[2019-07-04] MEDS: LISINOPRIL/HCTZ 20/25MG 1 TAB PO SCH (08:48)
[2019-07-04] MEDS: SERTRALINE HCL 100 MG TABLET PO SCH (08:48)
--- NOTE | 2019-07-04 09:16 | Orthopedic Progress Note ---
Date of Service July 04, 2019 Assessment & Plan (1) Cauda equina compression: This time initiate physical therapy monitor his LAMINE output. Hopefully discharge home the next few days. Subjective Patient's back pain is controlled. He feels that his numbness in the right lower extremities improved dramatically still fairly numb on the left lower extremity. He has no pain down the legs. He is urinating very well since completing surgery. Physical Exam Physical Exam: On exam he has good strength testing. He appears comfortable. Results & Data Vital Signs (Past 12 Hours) Vital Signs Temp Pulse Pulse Resp BP Pulse Ox 07/04/19 08:47 83 118/68 07/04/19 06:51 36.5 C 74 16 124/73 99 07/04/19 03:22 36.7 C 70 16 141/85 H 97 07/03/19 23:09 36.9 C 75 16 122/69 95 07/03/19 21:54 78 16 122/70 95
[2019-07-04] MEDS: DOCUSATE SODIUM/SENNA 50/8.6MG TAB PO SCH (20:50)
[2019-07-05] MEDS: POLYETHYLENE (MIRALAX) 17 GM PACK PO SCH ×2 (05:05→13:02)
[2019-07-05] MEDS: DEXAMETHASONE SOD PHOSPHATE 8 MG in SYRINGE 0 ML IV SCH ×2 (05:05→14:08)
[2019-07-05] MEDS: SERTRALINE HCL 100 MG TABLET PO SCH (08:02)
[2019-07-05] MEDS: LISINOPRIL/HCTZ 20/25MG 1 TAB PO SCH (08:02)
--- NOTE | 2019-07-05 10:34 | Discharge Summary ---
Date of Service July 05, 2019 Principal Diagnosis Acute disc herniation with cauda equina syndrome Discharge Data Allergies Allergy/AdvReac Type Severity Reaction Status Date / Time No Known Allergies Allergy Unverified 07/03/19 10:55 Consultations 07/03/19 10:36 Consult Orthopedic Surgery Stat 07/03/19 18:54 Consult Case Management - Discharge Planning Routine Procedures Performed Operation Date: 07/03/19 11:15 Actual Procedures p L4-L5 Decompression and Fusion, with Spinal Cord Monitoring - Yony Oconnell DO Ordered Studies 07/03/19 [place] fluoroscopy <1hr Routine [place] lumbar spine 2-3V Routine Hospital Course (1) Cauda equina compression: Patient was admitted to hospital with marked decline in status with bila teral leg pain numbness and urinary retention. He underwent emergent lumbar decompression and fusion. He tolerated as well as taken orthopedic for postoperative. Postop day #1 symptoms were improving he was urinating well. Progressed to postop day #2. LAMINE drain decreasing appropriately. Pain well controlled. Subsequently discharged home. Discharge orders and instructions can be found the chart for further review. Total Time Total Time Spent Total Time Spent (In Minutes): 30 minutes Discharge Plan Discharge Items Patient Disposition: Home - Self-Care Reason For Visit: HNP LUMBAR SPINE WITH NEURO DEFICIT; URINARY Discharge Diagnosis: Herniated was pulposis L5-S1 with neuro deficits and urinary retention Activity: Per Instructions section Non-emergency contact: Primary Care Provider Call non-emergency contact if: you have any medication questions Follow-up/Referrals: Zee Mccann PA-C [Primary Care Provider] - Diet: Regular Addtl Attending Provider Instructions: ACTIVITY RECOMMENDATIONS: SELF CARE INSTRUCTIONS AFTER THORACIC/LUMBAR FUSIONS 1. You may walk to your tolerance. It is good exercise for your legs and back. Expect some back and intermittent leg aches and pains. 2. You may perform "counter-top" level activities (make a sandwich, anya with a project, etc.). 3. No bending or lifting of more than 10 pounds or back twisting of any nature (roll like a log when turning in bed). 4. You may ride in a car for 20-30 minutes at a time. No driving until after your first visit with your doctor. 5. Frequent changes of position and restricting sitting to 30 minutes at a time will help limit the amount of back spasms and stiffness you may experience. 6. You may discontinue the use of ambulatory aids (cane, crutches, etc.) once your strength and confidence allow. 7. You may regional business manager the shower and let water strike your incision when you arrive home at least once daily. Do not take a tub bath, sit in a hot tub or go into a swimming pool until after your first recheck in the office. SPECIAL CARE INSTRUCTIONS: VERY IMPORTANT TO READ AND REVIEW A. Your surgical incision has been closed with a cosmetic suture under the skin that will dissolve in about 6 weeks. In 14 days, you can use a pair of clean scissors and cut the suture that is left outside of the skin at the ends of your incision. 1. The small skin tapes can be removed 7 days after surgery if they have not fallen off by that point. 2. You may keep the wound open to air as much as possible to promote healing after post-op day number 5 unless told otherwise by your doctor. 3. If you think the wound looks like it is becoming infected (redness or worsening drainage) and/or you are experiencing fever, chill or worsening back pain and muscle spasms, contact the office so that we may evaluate you as soon as possible. B. Complications are uncommon, but please contact us if you have any signs or symptoms of: 1. wound infection (fever higher than 102.5 degrees F, redness, separation of wound, drainage, or increasing pain from the incision) 2. blood clots in legs (pain, swelling, redness and warmth in legs) 3. urinary tract infection (fever higher than 102.5 degrees F, burning upon urination or increased frequency of urination) 4. nerve problems (inability to walk on your toes or heels, numbness, loss of bowel or bladder control) 5. any other symptoms that concern you C. Please call the office at if you have any concerns or questions about your operation or recovery. D. No smoking! Smoking drastically decreases the chance of a solid fusion. E. Do not take any anti-inflammatory medications (Indocin, Advil, Motrin, Aspirin, Naprosyn, etc.) as these may inhibit the chance of a solid fusion. Tylenol is okay to take for pain. MANAGING PAIN AFTER SPINAL SURGERY 1. Narcotic medication is intended for short-term use and will be provided for surgical pain. Surgical pain usually lasts for a period of 4-6 weeks. Narcotic medication includes Percocet, Vicodin, Darvocet, Tylenol #3 or Lortab. 2. Longer-term pain is more appropriately treated with non-narcotic medication such as Tylenol ES. 3. Muscle spasm is not appropriately treated with narcotics. Muscle relaxers such as Soma, Flexeril or Skelaxin can be used along with Tylenol ES. 4. Remember that we all live with some "aches and pains". This is not unusual or uncommon after an injury or as we get older. a. Back pain is expected and may include muscle spasms for 4 to 6 weeks after surgery. The pain should gradually improve. If the pain worsens for no apparent reason, please contact the office. b. Intermittent leg pain may also be experienced and should not be concerned about unless it worsens for no apparent reason. If so, please contact the office. 5. We will provide appropriate medication within the normal guidelines of their prescribed use. We will also be very cautious and aware of potential abuse and extended duration of patients' medication needs. a. Pain medications are for your comfort and to assist with sleep and rest so that the tissue can heal. They are not provided in order to return to normal activity and should not be used through the day. To do so or worsening pain at night can result from ongoing tissue damage and development of tolerance to the prescribed medicine. 6. Please allow 2-3 days to process refills. Prescriptions will not be mailed but must be picked up at the office. FOLLOW UP VISIT: Keep your scheduled follow-up appointment. Any questions, please call the office at . Pending Studies at Discharge: No Stand-Alone Forms: [facility] Medications and DC Order Prescriptions: New tramadol 50 mg Tablet 50 mg PO Q4H PRN (Reason: Pain, Moderate) Qty: 30 RF: 0 oxycodone 5 mg Tablet 5 mg PO Q4H PRN (Reason: Pain, Severe) Qty: 3 RF: 0 Continued sertraline 100 mg tablet 100 mg PO QAM RF: 0 acetaminophen [Tylenol Extra Strength] 500 mg Tablet 500 mg PO Q6H PRN (Reason: Pain) RF: 0 lisinopril-hydrochlorothiazide 20-25 mg tablet 1 tab PO QAM RF: 0 lidocaine [Lidoderm] 5 % adhesive patch,medicated 1 patch TOP DAILY Qty: 10 RF: 0 oxycodone 5 mg tablet 5 mg PO Q4H Qty: 10 RF: 0 diazepam [Valium] 2 mg tablet 2 mg PO QID PRN (Reason: muscle spasm) Qty: 10 RF: 0 prednisone 20 mg tablet 60 mg PO QAM RF: 0 Discontinued diclofenac sodium 75 mg tablet,delayed release (DR/EC) 75 mg PO BID RF: 0 Discharge Orders: Discharge Order (Routine); Ordered 07/05/19 Ordered By: Yony Oconnell Admission Data Admit Date/Time: 07/03/19 15:07 Attending Provider: Yony Oconnell Admit Provider: Yony Oconnell Primary Care Provider: Zee Mccann Other Providers: Yony Oconnell
[2019-07-05] MEDS: TRAMADOL HCL 50 MG TABLET PO PRN (13:04)
== END 2019-07-05 16:37 | disposition home or self-care (01) | DRG 454 ==
LOC: ED 09:29 → ASU 11:58 → 3E 15:07